=== PATIENT | female | born 1965 | race Caucasian/White ===

== ENCOUNTER → 2017-01-03 | Outpatient (CLI) | payer BC ==
[~2017-01-03] MED LIST: CHOL100061 PO; HUMALOG LISPRO SQ; INDA1.25 PO; IRON1CAP31 PO; POTA-57 PO
== END ==
LOC: RAD 13:25
PROVIDERS: ATTEND Family Medicine
DX: I10 Essential (primary) hypertension (principal); R01.1 Cardiac murmur, unspecified
CPT/HCPCS: 93306

== ENCOUNTER → 2017-01-29 | Outpatient (CLI) | payer BC ==
[~2017-01-29] MED LIST changes: +IRON SUCROSE 200 MG in NORMAL SALINE 150 ML IV ONE; +NS FLUSH 10 ML PRN IV; +NS FLUSH 3 ML PRN IV
--- NOTE | 2017-01-29 14:30 | NUR ---
The patient arrives to room 347 at this time. Orders processing.
--- NOTE | 2017-01-29 14:45 | NUR ---
First IV attempt unsuccessful. Warm blanket applied
--- NOTE | 2017-01-29 15:15 | NUR ---
2nd IV attempt unsuccessful. Nati AGUAYO notified. Warm pack applied.
--- NOTE | 2017-01-29 15:49 | NUR ---
22 gauge started in RFA by Nati AGUAYO at this time.
[2017-01-29 15:59] VITALS: BP 133/62
--- NOTE | 2017-01-29 16:01 | NUR ---
VSS and WNL. Infusion begins at this time
--- NOTE | 2017-01-29 17:05 | NUR ---
Infusion completed at this time. The IV is wrapped in coban and remains intact for infusion therapy on 01/31/17 at 10A.M.
== END ==
LOC: EUOP 13:58 → ICU 14:09
PROVIDERS: ATTEND Family Medicine
DX: E61.1 Iron deficiency (principal)
CPT/HCPCS: 96365; J1756; J7050

== ENCOUNTER 2017-01-31 09:58 | Outpatient (RCR) | payer BC ==
[~2017-01-31] VITALS: Ht 157.5 cm
[~2017-01-31 09:58] MED LIST changes: -IRON SUCROSE 200 MG in NORMAL SALINE 150 ML IV ONE; -NS FLUSH 10 ML PRN IV; -NS FLUSH 3 ML PRN IV
[2017-01-31] MEDS ORDERED: IRON SUCROSE 200 MG in NORMAL SALINE 150 ML IV ONE (10:05)
[2017-01-31] MEDS ORDERED: NS FLUSH 3 ML PRN IV (10:05)
[2017-01-31] MEDS: NS FLUSH 10 ML PRN IV (10:44)
[2017-02-02] MEDS ORDERED: IRON SUCROSE 200 MG in NORMAL SALINE 150 ML IV ONE (10:00)
--- NOTE | 2017-02-02 10:15 | NUR ---
Pt arrived in ICU ambulatory with . Pt taken to room 341 for infusion of venofer. IV started in L hand with 20 g intracath x 1 attmept. Venofer infusion started per pump at 160cc/hr. Warm blankets given to pt. VS taken and WNL.
[2017-02-02 10:29] VITALS: BP 120/62
[2017-02-02 10:31] VITALS: BP 120/62
[2017-02-02 11:30] VITALS: BP 123/63
--- NOTE | 2017-02-02 11:30 | NUR ---
Venofer infusion completed and flushed with NS 10cc. IV dcd and site secured with pressure drg. Pt left department ambulatory with for home. Pt tolerated procedure well.
[2017-02-04] MEDS ORDERED: IRON SUCROSE 200 MG in NORMAL SALINE 150 ML IV ONE (10:05)
--- NOTE | 2017-02-04 11:06 | NUR ---
Patient sitting in recliner visiting with family. IV med infusing well through pump. IV insertion site without redness, swelling, or tenderness to light palp of area.
[2017-02-04] MEDS: NS FLUSH 10 ML PRN IV (11:38)
[2017-02-06] MEDS ORDERED: IRON SUCROSE 200 MG in NORMAL SALINE 150 ML IV ONE (10:15)
[2017-02-06] MEDS ORDERED: SODIUM CHLORIDE FLUSH 10 ML ONE (10:30)
--- NOTE | 2017-02-06 10:37 | NUR ---
INFOSION OF VENIFER WAS STARTED TO LEFT FOREARM IV SITE AT 160 ML/HR.
[2017-02-06 10:50] VITALS: BP 117/57
[2017-02-06 10:52] VITALS: BP 117/57
--- NOTE | 2017-02-06 11:00 | NUR ---
PATIENT IS SITTING IN RECLINER AND IS ALERT AND ORIENTING. DENIES NEEDS. INFUSION CONTINUES TO RUN AT 160 ML/HR.
--- NOTE | 2017-02-06 11:15 | NUR ---
PATIENT ARRIVES TO ICU WITH HER CHART FOR A SCHEDULED INFUSION OF VENIFER. PATIENT IS PLACED IN ROOM 341 FOR INFUSION. PATIENT AMBULATES UNDER HER OWN POWER WITH NO ASSISTANCE. PATIENT HAS A 20 GUAGE PERIPHERAL IV IN HER LEFT FOREARM. IV FLUSHED EASILY WITH5 ML OF NS. WAS ABLE TO GET BLOOD RETURN.
--- NOTE | 2017-02-06 11:25 | NUR ---
VS WERE TAKEN. TEMP WAS 98.5 TEMPORALY, PULSE WAS 63, BP WAS 117/67, AND SPO2 WAS 100% ON ROOM AIR.
--- NOTE | 2017-02-06 11:35 | NUR ---
INFUSION COMPLETED. 159 ML WERE INFUSED. PATIENT TOLERATED WELL. ENDING VS WERE TEMP OF 98.5 TEMPORALLY, PULSE 63, BP 118/66.
[2017-02-06 12:04] VITALS: BP 117/57
[2017-02-06 12:05] VITALS: BP 117/57
--- NOTE | 2017-02-12 09:27 | NUR ---
Stop time added per PHA Order medication stopped at 1104.
== END 2017-02-13 18:20 | disposition home or self-care (01) ==
LOC: EUOP 02-02 09:51 → ICU 02-02 09:54 → EUOP 02-04 09:58 → ICU 02-06 10:09 → EUOP 02-13 18:20
PROVIDERS: ATTEND Family Medicine
DX: E61.1 Iron deficiency (principal)
CPT/HCPCS: 96365; J1756; J7050; 36000